=== PATIENT | female | born 1985 | race African-American/Black ===

== ENCOUNTER 2021-06-23 13:17 | Emergency (ER) | payer BC, OTHER ==
[~2021-06-23] VITALS: Ht 162.6 cm; Wt 81.2 kg
[2021-06-23 13:58] LABS: ABSOLUTE NEUTROPHILS 4.6 thou/uL (1.4-8.2); BASOPHILS 0.5 % (0.0-2.0); EOSINOPHILS 0.4 % (0.0-3.0); HEMATOCRIT 52.9 % (37.0-47.0); HEMOGLOBIN 17.2 gm/dL (12.0-15.0); LYMPHOCYTES 16.1 % (24.0-44.0); MCH 33.1 pg (26.0-34.0); MCHC 32.5 g/dL (28.0-37.0); MCV 101.8 fL (80.0-100.0); MONOCYTES 5.8 % (1.0-8.0); PLATELET COUNT 192 thou/uL (150-400); POLYS 77.2 % (36.0-66.0); WBC 5.9 thou/uL (4.0-11.0)
[2021-06-23 14:42] LABS: CALCIUM 9.3 mg/dL (8.5-10.1); CREATININE 0.8 mg/dL (0.6-1.0); POTASSIUM 3.7 mmol/L (3.5-5.1)
[2021-06-23 14:52] LABS: ALBUMIN 4.6 g/dL (3.4-5.0); TOTAL BILIRUBIN 0.9 mg/dL (0.2-1.0); TOTAL PROTEIN 8.7 g/dL (6.4-8.2)
[2021-06-23 15:10] LABS: BE(vivo) -2.4 mmol/L (-2 to +3); HCO3 21.7 mmol/L (22.0-26.0); PCO2 35.8 mmHg (35.0-45.0); PO2 58.5 mmHg (80.0-100.0); sO2 90.6 % (92.0-98.0)
[2021-06-23 16:11] VITALS: BP 125/82
--- NOTE | 2021-06-24 07:10 | EKG ---
[address] [place] [employer] [place] [place] [address] ELECTROCARDIOGRAM REPORT Name: ANNA KELLY Room #: [facility]#: [id number] Admission: 06/23/21 Attend Phys: Discharge: 06/23/21 Date of : 87 Report #: [id number] [facility] ED Test Date: 2021-06-23 Test Time: 14:46:31 Pat Name: ANNA KELLY Department: Room: Gender: F E [employer]: [email or web address] : 1985 Requested By: Kt Lewis Order Number: [id number] MD: Noah Burroughs Measurements Intervals [place] Rate: 75 P: 35 MS: 142 QRS: 19 QRSD: 117 T: -25 QT: 432 QTc: 483 Interpretive Statements Sinus rhythm Probable left atrial enlargement Nonspecific intraventricular conduction delay Inferior infarct, age indeterminate Compared to ECG 02/22/2009 22:35:07 No significant changes Electronically Signed On 06-24-2021 7:10:03 [employer]BER by Noah Burroughs [email or web address] <ELECTRONICALLY SIGNED> By: Noah Burroughs MD, [facility] 06/24/21 0710 1446 1446 Noah Burroughs MD, FACC /EPI
== END 2021-06-23 16:12 | disposition home or self-care (01) ==
LOC: ER 13:17
PROVIDERS: Nurse Practitioner
DX: O20.0 Threatened abortion (principal); Z88.1 Allergy status to other antibiotic agents; Z88.0 Allergy status to penicillin; Z88.6 Allergy status to analgesic agent; Z88.8 Allergy status to other drugs, medicaments and biological substances; Z3A.00 Weeks of gestation of pregnancy not specified

== ENCOUNTER 2021-06-26 11:16 | Emergency (ER) | payer BC, OTHER ==
[~2021-06-26] VITALS: Ht 157.5 cm; Wt 76.7 kg
[2021-06-26 11:20] VITALS: BP 117/78
[2021-06-26 11:48] LABS: URINE BILIRUBIN NEGATIVE (Negative); URINE BLOOD 3+ (Negative); URINE CLARITY CLEAR; URINE COLOR YELLOW; URINE GLUCOSE-RANDOM* NEGATIVE (Negative); URINE KETONES NEGATIVE (Negative); URINE LEUKOCYTES-REFLEX NEGATIVE (Negative); URINE NITRITE-REFLEX NEGATIVE (Negative); URINE PROTEIN (DIPSTICK) NEGATIVE (Negative); URINE SPECIFIC GRAVITY >= 1.030 (1.005-1.035); URINE UROBILINOGEN 0.2 E.U./dl (0.2-1.0)
[2021-06-26 12:03] LABS: ABSOLUTE NEUTROPHILS 3.8 thou/uL (1.4-8.2); BASOPHILS 1.6 % (0.0-2.0); EOSINOPHILS 0.2 % (0.0-3.0); HEMATOCRIT 52.1 % (37.0-47.0); HEMOGLOBIN 17.1 gm/dL (12.0-15.0); LYMPHOCYTES 23.1 % (24.0-44.0); MCH 33.6 pg (26.0-34.0); MCHC 32.8 g/dL (28.0-37.0); MCV 102.4 fL (80.0-100.0); PLATELET COUNT 193 thou/uL (150-400); POLYS 69.1 % (36.0-66.0); RBC 5.09 mil/uL (4.20-5.00); RDW 13.2 % (10.5-14.5); WBC 5.5 thou/uL (4.0-11.0)
[2021-06-26 12:10] LABS: BACTERIA-REFLEX 1-9 Few /HPF (None Seen); CASTS None Seen /LPF (None Seen); CRYSTALS None Seen /LPF (None Seen); SQUAMOUS >10 Many /LPF (0-3); URINE RBC 1-2 Rare /HPF (NONE SEEN); URINE WBC-REFLEX 0-5 Rare /HPF (0-5)
== END 2021-06-26 12:36 | disposition home or self-care (01) ==
LOC: ER 11:16
PROVIDERS: Emergency Medicine; Nurse Practitioner
DX: O20.0 Threatened abortion (principal); Q23.4 Hypoplastic left heart syndrome; Z3A.01 Less than 8 weeks gestation of pregnancy; Z88.0 Allergy status to penicillin; Z88.1 Allergy status to other antibiotic agents; Z88.6 Allergy status to analgesic agent; Z88.8 Allergy status to other drugs, medicaments and biological substances